=== PATIENT | female | born 1960 | race Hispanic/Latino ===

== ENCOUNTER 2016-06-23 00:20 | Observation (INO) | payer OTHER ==
[2016-06-23 00:53] VITALS: BMI 31.9
[2016-06-23] MEDS ORDERED: Sodium Chloride 0.9% 1,000 ML IV STA (01:06)
[2016-06-23] MEDS ORDERED: Morphine 2 mg/ml ISec IVP STA (01:06)
--- NOTE | 2016-06-23 01:07 | ED PDOC ---
Arrival/HPI - General Chief Complaint: Abdominal Pain Time Seen by Provider: 06/23/16 00:53 Historian: Patient - History of Present Illness Narrative History of Present Illness (Text): 06/23/16 01:07 Lillian Andrade is a 56 year old female who presents to the ED complaining of LLQ pain. Patient states yesterday morning she woke up with LLQ pain which resolved on its own, but notes pain returned this evening. Patient also reports associated left flank, urinary frequency, nausea, and vomiting. Patient denies any fever, chills, chest pain, shortness of breath, diarrhea, neck pain, headache, dizziness, or any other complaints. Time/Duration: Other (yesterday morning) Symptom Onset: Gradual Symptom Course: Unchanged Activities at Onset: Rest, Light Context: Home Past Medical History - Provider Review Nursing Documentation Reviewed: Yes - Infectious Disease Hx of Infectious Diseases: None - Tetanus Immunization Tetanus Immunization: Up to Date - Past Medical History Past Medical History: No Previous - Cardiac Hx Cardiac Disorders: No - Pulmonary Hx Respiratory Disorders: No - Neurological Hx Neurological Disorder: No - HEENT Other/Comment: CELLULITIS TO NOSE - Renal Hx Renal Disorder: No - Endocrine/Metabolic Hx Endocrine Disorders: No - Hematological/Oncological Hx AIDS: No - Integumentary Hx Cellulitis: Yes - Musculoskeletal/Rheumatological Hx Falls: No - Gastrointestinal Hx Gastrointestinal Disorders: No - Genitourinary/Gynecological Hx Cervical Cancer: No (LEEP for HPV) - Psychiatric Hx Depression: No Hx Substance Use: No - Surgical History Hx Orthopedic Surgery: Yes (left foot) Other/Comment: LEEP procedure - Anesthesia Hx Anesthesia: Yes Hx Anesthesia Reactions: No Hx Malignant Hyperthermia: No - Suicidal Assessment Feels Threatened In Home Enviroment: No Family/Social History - Physician Review Nursing Documentation Reviewed: Yes Family/Social History: No Known Family HX Smoking Status: Never Smoked Hx Alcohol Use: No Hx Substance Use: No Allergies/Home Meds Allergies/Adverse Reactions: Allergies No Known Allergies Allergy (Verified 06/23/16 00:53) Home Medications: Home Meds Medication Instructions Recorded Confirmed Bisoprolol [Zebeta] 5 mg PO DAILY 06/23/16 06/23/16 Losartan [Cozaar] 100 mg PO DAILY 06/23/16 06/23/16 Review of Systems - Physician Review All systems were reviewed & negative as marked: Yes - Review of Systems Constitutional: Normal. absent: Fevers Eyes: Normal ENT: Normal Respiratory: Normal. absent: SOB, Cough Cardiovascular: Normal. absent: Chest Pain Gastrointestinal: Abdominal Pain, Nausea, Vomiting. absent: Diarrhea, Appetite Changes Genitourinary Female: Frequency. absent: Dysuria, Hematuria, Urine Output Changes, Vaginal Bleeding Musculoskeletal: Back Pain. absent: Neck Pain Skin: Normal. absent: Rash Neurological: Normal. absent: Headache, Dizziness Endocrine: Normal Hemo/Lymphatic: Normal Psychiatric: Normal Physical Exam Vital Signs Reviewed: Yes Vital Signs Temp Pulse Resp BP Pulse Ox 06/23/16 04:08 72 16 130/70 98 06/23/16 03:20 69 16 126/71 100 06/23/16 01:01 97.6 F 53 L 20 134/85 100 Temperature: Afebrile Blood Pressure: Normal Pulse: Regular Respiratory Rate: Normal Appearance: Positive for: Well-Appearing, Non-Toxic, Comfortable Pain Distress: None Mental Status: Positive for: Alert and Oriented X 3 - Systems Exam Head: Present: Atraumatic, Normocephalic Pupils: Present: PERRL Extroacular Muscles: Present: EOMI Conjunctiva: Present: Normal Mouth: Present: Moist Mucous Membranes Neck: Present: Normal Range of Motion Respiratory/Chest: Present: Clear to Auscultation, Good Air Exchange. No: Respiratory Distress, Accessory Muscle Use Cardiovascular: Present: Regular Rate and Rhythm, Normal S1, S2. No: Murmurs Abdomen: Present: Tenderness (LLQ tenderness), Normal Bowel Sounds. No: Distention, Peritoneal Signs Upper Extremity: Present: Normal Inspection. No: Cyanosis, Edema Lower Extremity: Present: Normal Inspection. No: Edema Neurological: Present: GCS=15, CN II-XII Intact, Speech Normal Skin: Present: Warm, Dry, Normal Color. No: Rashes Psychiatric: Present: Alert, Oriented x 3, Normal Insight, Normal Concentration Medical Decision Making ED Course and Treatment: 06/23/16 01:07 Impression: 56 year old female complaining of LLQ pain, left flank pain, urinary frequency, nausea, and vomiting since yesterday. Differential Diagnosis include but are not limited to: kidney stone vs. renal colic vs. pyelonephritis vs. UTI Plan: -- CT Abdomen and Pelvis w/o contrast -- Labs, troponin -- Urinalysis -- IV fluids -- Zofran -- Morphine -- Reassess and disposition Prior Visits: Notes and results from previous visits were reviewed. Progress Notes: Reviewed EKG, sinus bradycardia at [address] bpm. LBBB. Non-specific ST/T wave changes. 06/23/16 02:23 Reviewed radiology, CT Abdomen and Pelvis shows: 3 mm left ureterovesical junction stone with moderate to severe left hydronephrosis, and correlation for infection recommended. 06/23/16 02:[address] Bonilla, who is aware and agrees with plan. Accepts pt in to hospitalist service. Pt will go to [facility] observation for renal colic. Pt is no acute distress. Discussed results and hospital observation plan with pt , who is aware and verbalizes understanding. 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 06/23/16 19:55 - Lab Interpretations Lab Results: 06/23/16 00:50 06/23/16 00:50 Lab Results 06/23/16 02:20: Urine Color Yellow, Urine Appearance Clear, Urine pH 6.0, Ur Specific Diana 1.025, Urine Protein Negative, Urine Glucose (UA) 100 H, Urine Ketones Negative, Urine Blood Moderate H, Urine Nitrate Negative, Urine Bilirubin Negative, Urine Urobilinogen 0.2, Ur Leukocyte Esterase Trace H, Urine RBC 5 - 10, Urine WBC 1 - 3, Ur Epithelial Cells 1 - 3, Urine Bacteria Few 06/23/16 00:50: WBC 8.5 D, RBC 4.60, Hgb 13.8, Hct 40.5, MCV 88.0, MCH 30.0, MCHC 34.1, RDW 13.3, Plt Count 284, MPV 10.0, Gran % 54.9, Lymph % (Auto) 36.7 H , [place] % (Auto) 6.0, Eos % (Auto) 2.0, Baso % (Auto) 0.4, Gran # 4.70, Lymph # 3.1, [place] # 0.5, Eos # 0.2, Baso # 0.03, Sodium 142, Potassium 3.5 L, Chloride 104, Carbon Dioxide 26, Anion Gap 16, BUN 18, Creatinine 0.7, Est GFR ( Amer) > 60, Est GFR (Non-Af Amer) > 60, Random Glucose 203 H, Calcium 9.4, Total Bilirubin 0.3, AST 27, ALT 23, Alkaline Phosphatase 63, Troponin I < 0.01 , Total Protein 7.3, Albumin 4.1, Globulin 3.2, Albumin/Globulin Ratio 1.3 I have reviewed the lab results: Yes - RAD Interpretation Narrative RAD Interpretations (Text): CT Abdomen and Pelvis shows: Lower thorax: Lung bases with mild dependent atelectatic change, no findings to suggest acute infection. Air in the esophagus in keeping with reflux. Small hiatus hernia. ABDOMEN: Liver: multiple hypoattenuating findings in the liver, these are not fully characterized on this noncontrast study, may represent multiple simple cysts. Gallbladder and bile ducts: Unremarkable. No calcified stones. No ductal dilation. Pancreas: Unremarkable. No ductal dilation. Spleen: Unremarkable. No splenomegaly. Adrenals: Unremarkable. No mass. Kidneys and ureters: There is moderate to severe left hydronephrosis. There is a 3 mm left ureterovesical junction stone. Clinical correlation for superimposed infection is recommended noting the extensive perinephric stranding. Stomach and bowel: No abdominal wall hernias containing bowel. No findings to suggest acute bowel pathology. No obstruction. No mucosal thickening. Appendix: The appendix is not identified with certainty, but there is no finding that would suggest acute appendicitis. PELVIS: Bladder: Unremarkable. No stones. Reproductive: Unremarkable as visualized. ABDOMEN and PELVIS: Intraperitoneal space: No free air. No significant fluid collection. Bones/joints: Degenerative spine changes. No acute fracture. No dislocation. Soft tissues: See above. Vasculature: Scattered atherosclerotic calcifications. No abdominal aortic aneurysm. Lymph nodes: Unremarkable. No enlarged lymph nodes. IMPRESSION: 3 mm left ureterovesical junction stone with moderate to severe left hydronephrosis, and correlation for infection recommended. Radiology Orders: 06/23/16 01:06 ABD & PELVIS W/O PO OR IV CONT [CT] Stat Reservoir Engineering Manager: Radiologist - EKG Interpretation Interpreted by ED Physician: Yes Type: 12 lead EKG - Medication Orders Current Medication Orders: Acetaminophen (Tylenol 325mg Tab) 650 mg PO Q4H PRN PRN Reason: Fever >100.4 F Last Admin: 06/23/16 18:41 Dose: 650 MG MAR Pain/Vitals Document 06/23/16 18:41 MJO (Rec: 06/23/16 18:42 MJO [id number]) Pain Reassessment Is This A Pain ReAssessment? No Sleep Is patient sleeping during reassessment? No Presence of Pain Presence of Pain Yes Pain Scale Used Pain Scale Used Numeric Location Pain Location Body [facility] Administrator Description Intermittent Intensity 7 Scale Used Numeric Pain Behavior Facial Grimacing Aggravating Factors None Aggravating Factors None Ceftriaxone Sodium (Rocephin 1 Gram Ivpb) 100 mls @ 100 mls/hr IVPB DAILY XENA PRN Reason: Protocol Losartan Potassium (Cozaar) 100 mg PO DAILY [facility] Last Admin: 06/23/16 10:26 Dose: 100 MG Morphine Sulfate (Morphine) 2 mg IVP Q4H PRN PRN Reason: Pain, moderate (4-7) Non-Formulary Medication (Bisoprolol [Zebeta]) 5 mg PO DAILY [facility] Ondansetron HCl (Zofran Inj) 4 mg IVP Q8H PRN PRN Reason: Nausea/Vomiting Pantoprazole Sodium (Protonix Ec Tab) 40 mg PO 0630 [facility] Discontinued Medications Hydromorphone HCl (Dilaudid) 2 mg IVP STAT STA Stop: 06/23/16 02:17 Last Admin: 06/23/16 02:42 Dose: Not Given Non-Admin Reason: Patient Refused IVP Administration Document 06/23/16 02:42 [email or web address] (Rec: 06/23/16 02:[id number]) Charges for Administration # of IVP Administrations 1 Sodium Chloride (Sodium Chloride 0.9%) 1,000 mls @ 100 mls/hr IV .Q10H STA Stop: 06/23/16 11:05 Last Admin: 06/23/16 01:22 Dose: 100 MLS/HR eMAR Start Stop Document 06/23/16 01:22 [email or web address] (Rec: 06/23/16 01:[id number]) Intravenous Solution Start Date 06/23/16 Start Time 01:22 Ceftriaxone Sodium (Rocephin 1 Gram Ivpb) 100 mls @ 200 mls/hr IVPB STAT STA PRN Reason: Protocol Stop: 06/23/16 03:32 Last Admin: 06/23/16 04:06 Dose: 200 MLS/HR eMAR Start Stop Document 06/23/16 04:06 LAC (Rec: 06/23/16 04:07 LAC [email or web address]) Intravenous Solution Start Date 06/23/16 Start Time 04:06 End Date 06/23/16 End time 05:00 Total Infusion Time 54 Morphine Sulfate (Morphine) 2 mg IVP STAT STA Stop: 06/23/16 01:07 Last Admin: 06/23/16 01:20 Dose: 2 MG MAR Pain Assessment Document 06/23/16 01:20 [facility] (Rec: 06/23/16 01:[id number]) Pain Reassessment Is this a pain reassessment? No Sleep Is patient sleeping during reassessment? No Presence of Pain Presence of Pain Yes Pain Scale Used Pain Scale Used Numeric Location Pain Location Body Site Abdomen Description Description Constant Intensity of Pain at present 9 Pain Behavior Facial Grimacing Aggravating Factors Changing Position Alleviating Factors/Management Medication Techniques Alleviating Factors Medication IVP Administration Document 06/23/16 01:20 [facility] (Rec: 06/23/16 01:[id number]) Charges for Administration # of IVP Administrations 1 Non-Formulary Medication (Bisoprolol [Zebeta]) 5 mg PO DAILY [facility] Last Admin: 06/23/16 10:00 Dose: 5 mg Ondansetron HCl (Zofran Inj) 4 mg IVP STAT STA Stop: 06/23/16 01:07 Last Admin: 06/23/16 01:22 Dose: 4 MG IVP Administration Document 06/23/16 01:22 [facility] (Rec: 06/23/16 01:[id number]) Charges for Administration # of IVP Administrations 1 - Scribe Statement The provider has reviewed the documentation as recorded by the Payton Garcia Provider Attestation: All medical record entries made by the Akiibnicolas were at my direction and personally dictated by me. I have reviewed the chart and agree that the record accurately reflects my personal performance of the history, physical exam, medical decision making, and the department course for this patient. I have also personally directed, reviewed, and agree with the discharge instructions and disposition. Disposition/Present on Arrival - Present on Arrival Any Indicators Present on Arrival: No History of DVT/PE: No History of Uncontrolled Diabetes: Yes Urinary Catheter: No History of Decub. Ulcer: No History Surgical Site Infection Following: None - Disposition Have Diagnosis and Disposition been Completed?: Yes Diagnosis: UTI (urinary tract infection), Left bundle branch block, Renal colic on left side Disposition: HOSPITALIZED Disposition Time: 03:25 Condition: FAIR
[2016-06-23 01:36] LABS: ADD MANUAL DIFF? NO
[2016-06-23 01:53] LABS: ALB/GLOB RATIO 1.3 (1.1-1.8); ALKALINE PHOSPHATASE 63 U/L (38-133); ALT/SGPT 23 U/L (7-56); AST/SGOT 27 U/L (15-39); BILIRUBIN,TOTAL 0.3 mg/dL (0.2-1.3); BLOOD UREA NITROGEN 18 mg/dL (7-21); CALCIUM 9.4 mg/dL (8.4-10.5); CARBON DIOXIDE 26 mmol/L (21-33); CHLORIDE 104 mmol/L (95-110); GFR AFRICAN-AMERICAN > 60; GLUCOSE,RANDOM 203 mg/dL (70-110); POTASSIUM 3.5 mmol/L (3.6-5.0); SODIUM 142 mmol/L (132-148); TOTAL PROTEIN 7.3 g/dL (5.8-8.3)
[2016-06-23 02:03] LABS: BASO # 0.03 K/mm3 (0.0-2.0); BASO % 0.4 % (0.0-3.0); EOS # 0.2 (0.0-0.7); GRAN % 54.9 % (50.0-68.0); HEMATOCRIT 40.5 % (36.0-48.0); LYMPH # 3.1 (1.2-3.4); LYMPH % 36.7 % (22.0-35.0); MEAN CORPUSCULAR HGB CONC 34.1 g/dl (31.0-37.0); MONO # 0.5 (0.1-0.6); PLATELET COUNT 284 10^3/uL (120.0-450.0); RED CELL DISTRIBUTION WIDTH 13.3 % (11.5-14.5); WHITE BLOOD COUNT 8.5 10^3/ul (4.5-11.0)
[2016-06-23] MEDS ORDERED: HYDROmorphone 2 mg/ml ISec IVP STA (02:16)
[2016-06-23 02:37] LABS: URINE APPEARANCE CLEAR (CLEAR); URINE BILIRUBIN NEGATIVE (NEGATIVE); URINE BLOOD MODERATE (NEGATIVE); URINE COLOR YELLOW (YELLOW); URINE GLUCOSE (UA) 100 mg/dL (NEGATIVE); URINE KETONE NEGATIVE (NEGATIVE); URINE LEUKOCYTE ESTERASE TRACE Leu/uL (NEGATIVE); URINE PROTEIN NEGATIVE mg/dL (<30 mg/dL); URINE UROBILINOGEN 0.2 E.U./dL (<1 E.U./dL)
[2016-06-23 02:45] LABS: URINE BACTERIA FEW (NEG)
[2016-06-23] MEDS ORDERED: cefTRIAXone 1 gm 100 ML IVPB STA (03:03)
[2016-06-23 03:17] LABS: TROPONIN I < 0.01 ng/mL
--- NOTE | 2016-06-23 03:33 | CP.PCM.PN ---
Subjective - Date & Time of Evaluation Date of Evaluation: 06/23/16 Time of Evaluation: 03:33 - Subjective Subjective: PGY-[address] Bonilla Admission: Renal colic, nephtolithiais, hydronephrosis 56 year old female who presents to the ED complaining of LLQ pain. Patient states yesterday morning she woke up with LLQ pain which resolved on its own, but notes pain returned this evening. Patient also reports associated left flank , urinary frequency, nausea, and vomiting. Upon ED arrival, T 97.6, HR 53, 134/85, 100 RA CBC unremarkable. K 3.5, Glucose 203, GFR normal. trops negative x 1. LFT normal. U/A shows 1-3 WBC, (+) leukocyte esterase, negative nitrate, + blood, + glucose Urine culture sent. - EKG shows sinus bradycardia at 56 bpm. LBBB. Non-specific ST/T wave changes. - CT Abdomen and Pelvis shows (+) 3 mm left ureterovesical junction stone with moderate to severe left hydronephrosis, and correlation for infection recommended. Air in the esophagus in keeping with reflux. Small hiatus hernia. Multiple liver cysts. Pt received zofran x1. NS @ 100. Rocephin x 1. 2 mg morphine & 2 mg dilaudid was given at the ED with adequate pain control While on the floor, dark brown 5mm hard stone was procured after straining urine at 4:30AM ROS: Patient denies any fever, chills, chest pain, shortness of breath, diarrhea , neck pain, headache, dizziness, or any other complaints. 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
--- NOTE | 2016-06-23 05:04 | CP.PCM.HP ---
History of Present Illness - History of Present Illness History of Present Illness: PGY-[address] Bonilla Admission: Renal colic, nephtolithiais, hydronephrosis 56 year old female, with PMH HOCM, LBBB, HTN, HPV s/p LEEP, presents to the ED complaining of LLQ pain x 1 day. Patient states yesterday morning she woke up with LLQ pain which resolved on its own, but notes pain returned this evening, after intentionally holding urine while outdoor for the whole afternoon and evening. This evening, she noticed dysuria, urinary frequency with small amount per void, 10/10 sharp suprapubic pain that radiate to left flank, nausea, and vomiting. Upon ED arrival, T 97.6, HR 53, 134/85, 100 RA CBC unremarkable. K 3.5, Glucose 203, GFR normal. trops negative x 1. LFT normal. U/A shows 1-3 WBC, (+) leukocyte esterase, negative nitrate, + blood, + glucose Urine culture sent. - EKG shows sinus bradycardia at 56 bpm. LBBB. Non-specific ST/T wave changes. - CT Abdomen and Pelvis shows (+) 3 mm left ureterovesical junction stone with moderate to severe left hydronephrosis, and correlation for infection recommended. Air in the esophagus in keeping with reflux. Small hiatus hernia. Multiple liver cysts. Pt received zofran x1. NS @ 100. Rocephin x 1. 2 mg morphine & 2 mg dilaudid was given at the ED with adequate pain control While on the floor, dark brown 5mm hard stone was procured after straining urine at 4:30AM. Speciment was sent for kidney stone analysis test. ROS: Denies recent change of diet Denies any fever, chills, chest pain, shortness of breath, diarrhea, neck pain, headache, dizziness (+) polyphagia, denies polydipsia or polyuria PMH: HOCM Hx LBBB Echocardiogram June 2015 - LVEF preserved HTN HPV s/p LEEP, 2014. No follow up after procedure PSH: LEEP for HPV L Foot surgery C Section x 1. 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 Gatica, [place] Present on Admission - Present on Admission Any Indicators Present on Admission: No Past Patient History - Infectious Disease Hx of Infectious Diseases: None - Tetanus Immunizations Tetanus Immunization: Up to Date - Past Medical History & Family History Past Medical History?: No - Past Social History Smoking Status: Never Smoked - CARDIAC Hx Cardiac Disorders: No - PULMONARY Hx Respiratory Disorders: No - NEUROLOGICAL Hx Neurological Disorder: No - HEENT Other/Comment: CELLULITIS TO NOSE - RENAL Hx Chronic Kidney Disease: No - ENDOCRINE/METABOLIC Hx Endocrine Disorders: No - HEMATOLOGICAL/ONCOLOGICAL Hx AIDS: No - INTEGUMENTARY Hx Cellulitis: Yes - MUSCULOSKELETAL/RHEUMATOLOGICAL Hx Falls: No - GASTROINTESTINAL Hx Gastrointestinal Disorders: No - GENITOURINARY/GYNECOLOGICAL Hx Cervical Cancer: No (LEEP for HPV) - PSYCHIATRIC Hx Depression: No Hx Substance Use: No - SURGICAL HISTORY Hx Orthopedic Surgery: Yes (left foot) Other/Comment: LEEP procedure - ANESTHESIA Hx Anesthesia: Yes Hx Anesthesia Reactions: No Hx Malignant Hyperthermia: No Meds Allergies/Adverse Reactions: Allergies Allergy/AdvReac Type Severity Reaction Status Date / Time No Known Allergies Allergy Verified 06/23/16 00:53 Physical Exam - Constitutional Appears: No Acute Distress - Head Exam Head Exam: ATRAUMATIC, NORMOCEPHALIC - Eye Exam Eye Exam: EOMI, Normal appearance, PERRL Pupil Exam: NORMAL ACCOMODATION - ENT Exam ENT Exam: Mucous Membranes Moist - Neck Exam Neck exam: Positive for: Normal Inspection. Negative for: Meningismus - Respiratory Exam Respiratory Exam: Clear to Auscultation Bilateral, NORMAL BREATHING PATTERN. absent: Rales, Rhonchi, Wheezes - Cardiovascular Exam Cardiovascular Exam: REGULAR RHYTHM, +S1, +S2. absent: Systolic Murmur - GI/Abdominal Exam GI & Abdominal Exam: Normal Bowel Sounds, Soft. absent: Distended, Firm, Rigid , Tenderness - Extremities Exam Extremities exam: Positive for: normal capillary refill, pedal pulses present. Negative for: calf tenderness, pedal edema - Back Exam Back exam: absent: CVA tenderness (L), CVA tenderness (R) - Neurological Exam Neurological exam: Alert, Oriented x3 - Psychiatric Exam Psychiatric exam: Normal Affect, Normal Mood - Skin Skin Exam: Dry, Warm Results - Vital Signs Recent Vital Signs: Last Vital Signs Temp 97.6 F 06/23/16 01:01 Pulse 72 06/23/16 04:08 Resp 16 06/23/16 04:08 BP 130/70 06/23/16 04:08 Pulse Ox 98 06/23/16 04:08 - Labs Result Diagrams: 06/23/16 00:50 06/23/16 00:50 Assessment & Plan - Assessment and Plan (Free Text) Plan: 56 year old female, with PMH HOCM, LBBB, HTN, HPV s/p LEEP, presents to the ED complaining of LLQ pain x 1 day. Pt has dysuria, urinary frequency with small amount per void, 10/10 sharp suprapubic pain that radiate to left flank, nausea , and vomiting. She was admitted for Renal colic, nephtolithiais, hydronephrosis. CT Abdomen and Pelvis shows (+) 3 mm left ureterovesical junction stone with moderate to severe left hydronephrosis, and correlation for infection recommended. Multiple liver cysts. Glucose > 200. Nephtolithiais Hydronephrosis Renal Colic - resolved for now - dark brown 5mm hard stone was procured after straining urine at 4:30AM. Specimen was sent for kidney stone analysis test. - CT shows 3 mm left ureterovesical junction stone with moderate to severe left hydronephrosis - NPO in case of ureteral stent - may need cardiac clearance for HOCM and LBBB - Antiematics, IVF, pain med, tylenol PRN Pyelonephrisit vs Cystitis vs UTI - U/A shows 1-3 WBC, (+) leukocyte esterase, negative nitrate, + blood, + glucose - Continue rocephin daily - Educate about adequate hydration and scheduled voided while outdoor Diabetes, suspected - Glucose 203 - Glucosuria - Pending A1C Hiatus hernia Multiple liver cysts. - Accidental findings on CT - LFT normal. No abdominal pain. Observe HTN - continue home med Losartan 100 daily & Zebeta 5 daily HOCM with LBBB Prophylasix - SCD, protonix S/R/D/w Dr. Armani Bonilla. - Date & Time Date: 06/23/16 Time: 05:10
[2016-06-23] MEDS ORDERED: Morphine 2 mg/ml ISec IVP PRN (05:18)
[2016-06-23] MEDS ORDERED: Pantoprazole 40 mg EC Tab PO SCH (06:30)
[2016-06-23 07:00] LABS: ADD MANUAL DIFF? NO
[2016-06-23 07:06] LABS: BASO # 0.01 K/mm3 (0.0-2.0); BASO % 0.1 % (0.0-3.0); EOS % 0.1 % (1.5-5.0); GRAN # 8.27 (1.4-6.5); GRAN % 83.2 % (50.0-68.0); HEMATOCRIT 38.4 % (36.0-48.0); LYMPH # 1.2 (1.2-3.4); LYMPH % 11.6 % (22.0-35.0); MEAN CELL VOLUME 88.1 fL (80.0-105.0); MEAN CORPUSCULAR HGB CONC 34.1 g/dl (31.0-37.0); MEAN PLATELET VOLUME 9.7 fl (7.0-11.0); MONO # 0.5 (0.1-0.6); PLATELET COUNT 279 10^3/uL (120.0-450.0); RED CELL DISTRIBUTION WIDTH 13.3 % (11.5-14.5); WHITE BLOOD COUNT 9.9 10^3/ul (4.5-11.0)
[2016-06-23 07:17] LABS: ALB/GLOB RATIO 1.1 (1.1-1.8); ALKALINE PHOSPHATASE 57 U/L (38-133); ALT/SGPT 21 U/L (7-56); AST/SGOT 21 U/L (15-39); BILIRUBIN,TOTAL 0.4 mg/dL (0.2-1.3); BLOOD UREA NITROGEN 15 mg/dL (7-21); CALCIUM 9.1 mg/dL (8.4-10.5); CARBON DIOXIDE 27 mmol/L (21-33); CHLORIDE 106 mmol/L (98-107); GFR AFRICAN-AMERICAN > 60; GLUCOSE,RANDOM 101 mg/dL (70-110); POTASSIUM 4.1 mmol/L (3.6-5.0); SODIUM 142 mmol/L (132-148); TOTAL PROTEIN 7.4 g/dL (5.8-8.3)
--- NOTE | 2016-06-23 08:42 | CARD ---
APPROVED REPORT EKG Measurement Heart [id number] <Conclusion> Sinus bradycardia Left bundle branch block Abnormal ECG
--- NOTE | 2016-06-23 09:56 | CT ---
PROCEDURE: CT Abdomen and Pelvis without intravenous contrast HISTORY: left flank pain COMPARISON: None. TECHNIQUE: Technique. This CT exam was performed using one or more of the following dose reduction techniques: Automated exposure control, adjustment of the mA and/or kV according to patient size, and/or use of iterative reconstruction technique. Helical scans were obtained from the diaphragm to the pubic symphysis without intravenous contrast. Helical coronal and sagittal reconstructions were obtained. Radiation dose: Total exam DLP = 586 mGy-cm. FINDINGS: LOWER THORAX: Unremarkable. LIVER: Multiple hepatic cysts the largest in the left hepatic lobe measuring 6.1 centimeters. GALLBLADDER AND BILE DUCTS: Unremarkable. PANCREAS: Unremarkable. No gross lesion or ductal dilatation. SPLEEN: Unremarkable. ADRENALS: Unremarkable. No mass. KIDNEYS AND URETERS: Left hydroureteronephrosis with a 2 millimeter calculus at the left UVJ. VASCULATURE: Unremarkable. No aortic aneurysm. BOWEL: Unremarkable. No obstruction. No gross mural thickening. APPENDIX: Unremarkable. Normal appendix. PERITONEUM: Unremarkable. No free fluid. No free air. LYMPH NODES: Unremarkable. No enlarged lymph nodes. BLADDER: Unremarkable. REPRODUCTIVE: Unremarkable. BONES: No acute fracture. OTHER FINDINGS: None. IMPRESSION: Left hydroureteronephrosis with a 2 millimeter calculus at the left UVJ.
[2016-06-23] MEDS ORDERED: BISOPROLOL 5 MG PO SCH (10:00)
--- NOTE | 2016-06-23 16:59 | CARD ---
APPROVED REPORT EKG Measurement Heart [id number] [place] 168P36 [id number] <Conclusion> Sinus bradycardia Left bundle branch block Abnormal ECG
[2016-06-24] MEDS ORDERED: cefTRIAXone 1 gm 100 ML IVPB SCH ×2 (03:00→06:00)
[2016-06-24 07:20] LABS: ADD MANUAL DIFF? NO
[2016-06-24 07:25] LABS: BASO # 0.03 K/mm3 (0.0-2.0); BASO % 0.5 % (0.0-3.0); EOS # 0.2 (0.0-0.7); EOS % 2.7 % (1.5-5.0); GRAN # 2.77 (1.4-6.5); GRAN % 45.9 % (50.0-68.0); HEMATOCRIT 38.5 % (36.0-48.0); LYMPH # 2.6 (1.2-3.4); LYMPH % 43.9 % (22.0-35.0); MEAN CELL VOLUME 89.3 fL (80.0-105.0); MEAN CORPUSCULAR HEMOGLOBIN 29.5 pg (25.0-35.0); MEAN PLATELET VOLUME 9.8 fl (7.0-11.0); MONO # 0.4 (0.1-0.6); PLATELET COUNT 263 10^3/uL (120.0-450.0); RED CELL DISTRIBUTION WIDTH 13.5 % (11.5-14.5)
[2016-06-24 08:04] LABS: ALKALINE PHOSPHATASE 54 U/L (38-133); ALT/SGPT 18 U/L (7-56); AST/SGOT 18 U/L (15-39); BILIRUBIN,TOTAL 0.5 mg/dL (0.2-1.3); BLOOD UREA NITROGEN 13 mg/dL (7-21); CALCIUM 8.6 mg/dL (8.4-10.5); CARBON DIOXIDE 27 mmol/L (21-33); CHLORIDE 107 mmol/L (98-107); GFR AFRICAN-AMERICAN > 60; GLUCOSE,RANDOM 96 mg/dL (70-110); POTASSIUM 4.2 mmol/L (3.6-5.0); SODIUM 143 mmol/L (132-148); TOTAL PROTEIN 6.6 g/dL (5.8-8.3)
[2016-06-24 09:40] VITALS: TEMP 98.4
--- NOTE | 2016-06-24 09:56 | RAD ---
HISTORY: pain COMPARISON: No prior. FINDINGS: BOWEL: There is moderate amount of stool in the colon. There is nonobstructive bowel gas pattern. BONES: Normal. OTHER FINDINGS: None. IMPRESSION: Constipation. Nonobstructive bowel gas pattern.
[2016-06-24] MEDS ORDERED: BISOPROLOL 5 MG PO SCH (10:00)
--- NOTE | 2016-06-24 13:39 | CP.PCM.DIS ---
<Justo Davis - Last Filed: 06/24/16 16:14> Provider - Provider Date of Admission: 06/23/16 02:59 Attending physician: Tatiana Lau MD Primary care physician: Domo Goodson MD Consults: Dr. Jennifer Goodwin Time Spent in preparation of Discharge (in minutes): 35 Hospital Course - Lab Results Lab Results: Most Recent Lab Values WBC 6.0 10^3/ul (4.5-11.0) D 06/24/16 07:00 RBC 4.31 10^6/uL (3.5-6.1) 06/24/16 07:00 Hgb 12.7 gm/dL (12.0-16.0) 06/24/16 07:00 Hct 38.5 % (36.0-48.0) 06/24/16 07:00 MCV 89.3 fL (80.0-105.0) 06/24/16 07:00 MCH 29.5 pg (25.0-35.0) 06/24/16 07:00 MCHC 33.0 g/dl (31.0-37.0) 06/24/16 07:00 RDW 13.5 % (11.5-14.5) 06/24/16 07:00 Plt Count 263 10^3/uL (120.0-450.0) 06/24/16 07:00 MPV 9.8 fl (7.0-11.0) 06/24/16 07:00 Gran % 45.9 % (50.0-68.0) L 06/24/16 07:00 Lymph % (Auto) 43.9 % (22.0-35.0) H 06/24/16 07:00 Emmet % (Auto) 7.0 % (1.0-6.0) H 06/24/16 07:00 Eos % (Auto) 2.7 % (1.5-5.0) 06/24/16 07:00 Baso % (Auto) 0.5 % (0.0-3.0) 06/24/16 07:00 Gran # 2.77 (1.4-6.5) 06/24/16 07:00 Lymph # 2.6 (1.2-3.4) 06/24/16 07:00 Emmet # 0.4 (0.1-0.6) 06/24/16 07:00 Eos # 0.2 (0.0-0.7) 06/24/16 07:00 Baso # 0.03 K/mm3 (0.0-2.0) 06/24/16 07:00 Sodium 143 mmol/L (132-148) 06/24/16 07:00 Potassium 4.2 mmol/L (3.6-5.0) 06/24/16 07:00 Chloride 107 mmol/L (98-107) 06/24/16 07:00 Carbon Dioxide 27 mmol/L (21-33) 06/24/16 07:00 Anion Gap 13 (10-20) 06/24/16 07:00 BUN 13 mg/dL (7-21) 06/24/16 07:00 Creatinine 0.6 mg/dL (0.5-1.4) 06/24/16 07:00 Est GFR ( Amer) > 60 06/24/16 07:00 Est GFR (Non-Af Amer) > 60 06/24/16 07:00 Random Glucose 96 mg/dL (70-110) 06/24/16 07:00 Hemoglobin A1c 5.1 % (4.2-6.5) 06/24/16 07:00 Calcium 8.6 mg/dL (8.4-10.5) 06/24/16 07:00 Total Bilirubin 0.5 mg/dL (0.2-1.3) 06/24/16 07:00 AST 18 U/L (15-39) 06/24/16 07:00 ALT 18 U/L (7-56) 06/24/16 07:00 Alkaline Phosphatase 54 U/L (38-133) 06/24/16 07:00 Troponin I < 0.01 ng/mL 06/23/16 00:50 Total Protein 6.6 g/dL (5.8-8.3) 06/24/16 07:00 Albumin 3.3 g/dL (3.0-4.8) 06/24/16 07:00 Globulin 3.2 gm/dL 06/24/16 07:00 Albumin/Globulin Ratio 1.0 (1.1-1.8) L 06/24/16 07:00 Urine Color Yellow (YELLOW) 06/23/16 02:20 Urine Appearance Clear (CLEAR) 06/23/16 02:20 Urine pH 6.0 (4.7-8.0) 06/23/16 02:20 Ur Specific [place] 1.025 (1.005-1.035) 06/23/16 02:20 Urine Protein Negative mg/dL (<30 mg/dL) 06/23/16 02:20 Urine Glucose (UA) 100 mg/dL (NEGATIVE) H 06/23/16 02:20 Urine Ketones Negative mg/dL (NEGATIVE) 06/23/16 02:20 Urine Blood Moderate (NEGATIVE) H 06/23/16 02:20 Urine Nitrate Negative (NEGATIVE) 06/23/16 02:20 Urine Bilirubin Negative (NEGATIVE) 06/23/16 02:20 Urine Urobilinogen 0.2 E.U./dL (<1 E.U./dL) 06/23/16 02:20 Ur Leukocyte Esterase Trace Faheem/uL (NEGATIVE) H 06/23/16 02:20 Urine RBC 5 - 10 /hpf (0-2) 06/23/16 02:20 Urine WBC 1 - 3 /hpf (0-6) 06/23/16 02:20 Ur Epithelial Cells 1 - 3 /hpf (0-5) 06/23/16 02:20 Urine Bacteria Few (NEG) 06/23/16 02:20 - Hospital Course Hospital Course: HPI: 56 year old female, with PMH HOCM, LBBB, HTN, HPV s/p LEEP, presents to the ED complaining of LLQ pain x 1 day. Patient states yesterday morning she woke up with LLQ pain which resolved on its own, but notes pain returned this evening, after intentionally holding urine while outdoor for the whole afternoon and evening. This evening, she noticed dysuria, urinary frequency with small amount per void, 10/10 sharp suprapubic pain that radiate to left flank, nausea, and vomiting. Patient is a 56 y/o F who presented to the ED with complaint of left lower quadrant pain for one day. She noticed dysuria and urinary frequency as well as suprapubic pain. A UA was performed which was positive for leukocyte esterase, glucose, and blood. An EKG was performed showing sinus bradycardia with LBBB and non-specific St/T wave changes. A CT of the abdomen and pelvis shows 3mm left reterovesical junction stone with moderate to severe left hydronephrosis, and correlation for infection recommended, air in the esophagus in keeping with reflux, small hiatus hernia, multiple liver cysts. She was given Rocephin, morphine, and dilauded as well as zofran. Urology was consulted. While admitted she passed a dark brown had stone and symptoms improved. She was determined medically stable for discharge. She was advised to follow up with Dr. Goodwin at his clinic, resume home medications, and follow up with her primary care physician and front office clerk within a week of discharge. She was told would need an outpatient abdominal ultrasound to monitor liver cysts. She was told that if her symptoms worsen or new symptoms arise, to please return to the emergency room. She verbalized understanding and was discharged home. This is a brief summary of the patient's stay at this facility. For more detail , please see patient's full chart. - Date & Time of H&P Date of H&P: 06/23/16 Time of H&P: 05:04 Discharge Exam - Head Exam Head Exam: ATRAUMATIC, NORMOCEPHALIC - Eye Exam Eye Exam: EOMI, Normal appearance, PERRL Pupil Exam: NORMAL ACCOMODATION, PERRL - ENT Exam ENT Exam: Mucous Membranes Moist, Normal Oropharynx - Respiratory Exam Respiratory Exam: NORMAL BREATHING PATTERN. absent: Rales, Rhonchi, Wheezes - Cardiovascular Exam Cardiovascular Exam: REGULAR RHYTHM, +S1, +S2. absent: Gallop, Rubs, Systolic Murmur - GI/Abdominal Exam GI & Abdominal Exam: Normal Bowel Sounds, Soft. absent: Tenderness - Extremities Exam Extremities exam: normal capillary refill, normal inspection, pedal pulses present - Back Exam Back exam: NORMAL INSPECTION. absent: CVA tenderness (L), CVA tenderness (R), tenderness - Neurological Exam Neurological exam: Alert, CN II-XII Intact, Oriented x3 - Psychiatric Exam Psychiatric exam: Normal Affect, Normal Mood - Skin Skin Exam: Dry, Intact, Normal Color, Warm Discharge Plan - Follow Up Plan Condition: FAIR Disposition: HOME/ ROUTINE Instructions: Pneumococcal Vaccine for Adults (GEN), Renal Colic (DC), Regular Diet (GEN), Urinary Tract Infection in Women (DC), Urinary Tract Infection in Men (DC), Dysuria (GEN) Additional Instructions: 1) You are medically stable for discharge. 2) Please follow up with Dr. Chao Goodwin, Urology, at his office in [place] at 1900 (7:00PM)this evening. 3) Please follow up with your primary care physician and front office clerk. You will need to get repeat ultrasound of the liver in 6 months. 4) Please resume home medications and take as prescribed. 5) If your symptoms worsen or new symptoms arise, please return to the emergency room. Referrals: Domo Goodson MD [Primary Care Provider] - Chao Goodwin MD [Staff Provider] - <Tatiana Lau - Last Filed: 06/24/16 17:50> Provider - Provider Date of Admission: 06/23/16 02:59 Attending physician: Tatiana Lau MD Primary care physician: Domo Goodson MD Time Spent in preparation of Discharge (in minutes): 35 Hospital Course - Lab Results Lab Results: Most Recent Lab Values WBC 6.0 10^3/ul (4.5-11.0) D 06/24/16 07:00 RBC 4.31 10^6/uL (3.5-6.1) 06/24/16 07:00 Hgb 12.7 gm/dL (12.0-16.0) 06/24/16 07:00 Hct 38.5 % (36.0-48.0) 06/24/16 07:00 MCV 89.3 fL (80.0-105.0) 06/24/16 07:00 MCH 29.5 pg (25.0-35.0) 06/24/16 07:00 MCHC 33.0 g/dl (31.0-37.0) 06/24/16 07:00 RDW 13.5 % (11.5-14.5) 06/24/16 07:00 Plt Count 263 10^3/uL (120.0-450.0) 06/24/16 07:00 MPV 9.8 fl (7.0-11.0) 06/24/16 07:00 Gran % 45.9 % (50.0-68.0) L 06/24/16 07:00 Lymph % (Auto) 43.9 % (22.0-35.0) H 06/24/16 07:00 Emmet % (Auto) 7.0 % (1.0-6.0) H 06/24/16 07:00 Eos % (Auto) 2.7 % (1.5-5.0) 06/24/16 07:00 Baso % (Auto) 0.5 % (0.0-3.0) 06/24/16 07:00 Gran # 2.77 (1.4-6.5) 06/24/16 07:00 Lymph # 2.6 (1.2-3.4) 06/24/16 07:00 Emmet # 0.4 (0.1-0.6) 06/24/16 07:00 Eos # 0.2 (0.0-0.7) 06/24/16 07:00 Baso # 0.03 K/mm3 (0.0-2.0) 06/24/16 07:00 Sodium 143 mmol/L (132-148) 06/24/16 07:00 Potassium 4.2 mmol/L (3.6-5.0) 06/24/16 07:00 Chloride 107 mmol/L (98-107) 06/24/16 07:00 Carbon Dioxide 27 mmol/L (21-33) 06/24/16 07:00 Anion Gap 13 (10-20) 06/24/16 07:00 BUN 13 mg/dL (7-21) 06/24/16 07:00 Creatinine 0.6 mg/dL (0.5-1.4) 06/24/16 07:00 Est GFR ( Amer) > 60 06/24/16 07:00 Est GFR (Non-Af Amer) > 60 06/24/16 07:00 Random Glucose 96 mg/dL (70-110) 06/24/16 07:00 Hemoglobin A1c 5.1 % (4.2-6.5) 06/24/16 07:00 Calcium 8.6 mg/dL (8.4-10.5) 06/24/16 07:00 Total Bilirubin 0.5 mg/dL (0.2-1.3) 06/24/16 07:00 AST 18 U/L (15-39) 06/24/16 07:00 ALT 18 U/L (7-56) 06/24/16 07:00 Alkaline Phosphatase 54 U/L (38-133) 06/24/16 07:00 Troponin I < 0.01 ng/mL 06/23/16 00:50 Total Protein 6.6 g/dL (5.8-8.3) 06/24/16 07:00 Albumin 3.3 g/dL (3.0-4.8) 06/24/16 07:00 Globulin 3.2 gm/dL 06/24/16 07:00 Albumin/Globulin Ratio 1.0 (1.1-1.8) L 06/24/16 07:00 Urine Color Yellow (YELLOW) 06/23/16 02:20 Urine Appearance Clear (CLEAR) 06/23/16 02:20 Urine pH 6.0 (4.7-8.0) 06/23/16 02:20 Ur Specific [place] 1.025 (1.005-1.035) 06/23/16 02:20 Urine Protein Negative mg/dL (<30 mg/dL) 06/23/16 02:20 Urine Glucose (UA) 100 mg/dL (NEGATIVE) H 06/23/16 02:20 Urine Ketones Negative mg/dL (NEGATIVE) 06/23/16 02:20 Urine Blood Moderate (NEGATIVE) H 06/23/16 02:20 Urine Nitrate Negative (NEGATIVE) 06/23/16 02:20 Urine Bilirubin Negative (NEGATIVE) 06/23/16 02:20 Urine Urobilinogen 0.2 E.U./dL (<1 E.U./dL) 06/23/16 02:20 Ur Leukocyte Esterase Trace Faheem/uL (NEGATIVE) H 06/23/16 02:20 Urine RBC 5 - 10 /hpf (0-2) 06/23/16 02:20 Urine WBC 1 - 3 /hpf (0-6) 06/23/16 02:20 Ur Epithelial Cells 1 - 3 /hpf (0-5) 06/23/16 02:20 Urine Bacteria Few (NEG) 06/23/16 02:20 - Hospital Course Hospital Course: Attending note; patient seen and examined with the resident. Patient is a 56 year old female with PMH HOCM, LBBB, HTN, HPV s/p LEEP, presents to the ED complaining of LLQ pain x 1 day. Patient states that she woke up with LLQ pain. CT abdomen and pelvis showed 2 mm stone with left hydronephrosis. The patient passed the stone yesterday morning. stone analysis pending. Currently patient is afebrile and nontoxic. No abdominal pain. No nausea, vomiting. Abdominal x-ray showed No stones. Case discussed with urology DR. Chao solorzano in detail. she will follow up with DR. Goodwin today evening. diagnosis; left ureteral stone HOCM HTN
[2016-06-24 15:51] VITALS: BP 135/71; PULSE 58; RESP 20; O2SAT 99
== END 2016-06-24 16:59 | disposition home or self-care (01) ==
LOC: ED 00:20 → ERH 02:59 → 5RNO 04:21
PROVIDERS: ADMIT Hospitalist; ATTEND Internal Medicine
DX: N13.2 Hydronephrosis with renal and ureteral calculous obstruction (principal); N39.0 Urinary tract infection, site not specified; I10 Essential (primary) hypertension; I42.1 Obstructive hypertrophic cardiomyopathy; I44.7 Left bundle-branch block, unspecified; K21.9 Gastro-esophageal reflux disease without esophagitis; K44.9 Diaphragmatic hernia without obstruction or gangrene; K76.89 Other specified diseases of liver; Z79.899 Other long term (current) drug therapy; Z82.49 Family history of ischemic heart disease and other diseases of the circulatory system; J34.0 Abscess, furuncle and carbuncle of nose; Z85.41 Personal history of malignant neoplasm of cervix uteri
CPT/HCPCS: 36415; 74022; 74176; 80053; 81001; 83036; 84484; 85025; 87086; 88300; 93005; 96365; 96366; 96375; 99285; G0378; J0696; J2270; J2405; J7040

== ENCOUNTER 2018-08-03 10:48 | Emergency (ER) | payer OTHER ==
[2018-08-03 11:04] VITALS: BMI 28.1
[2018-08-03 11:09] VITALS: BP 164/61; RESP 18; TEMP 98.5; O2SAT 100
[2018-08-03 11:11] VITALS: PULSE 82
[2018-08-03] MEDS ORDERED: Tmp-Smz 800 mg-160 mg DS Tab PO STA (11:20)
--- NOTE | 2018-08-03 11:35 | ED PDOC ---
Arrival/HPI - General Chief Complaint: Abnormal Skin Integrity Time Seen by Provider: 08/03/18 11:08 Historian: Patient - History of Present Illness Narrative History of Present Illness (Text): 08/03/18 11:28 58 year old female, with a past medical history of hypertension, and hyperlipidemia, who presents to the emergency department complaining of cellulitis on her nose. Patient reports she has had cellulitis of her nose four times in the past, with the last time four years ago. Patient reports she initially felt throbbing in the area on Friday after cleaning son's room. She reports taking Bactrim for the past 2 days. She denies having any facials done. She denies fever or any other somatic complaints. PMD: Dr. Goodson Time/Duration: < week Symptom Onset: Gradual Symptom Course: Unchanged Activities at Onset: Light Context: Home Past Medical History - Provider Review Nursing Documentation Reviewed: Yes - Infectious Disease Hx of Infectious Diseases: None - Tetanus Immunization Tetanus Immunization: Up to Date - Past Medical History Past Medical History: No Previous - Cardiac Hx Hypertension: Yes - Pulmonary Hx Respiratory Disorders: No - Neurological Hx Neurological Disorder: No - HEENT Other/Comment: CELLULITIS TO NOSE - Renal Hx Kidney Stones: Yes - Endocrine/Metabolic Hx Endocrine Disorders: No - Hematological/Oncological Hx Blood Transfusions: No Hx Blood Transfusion Reaction: No - Integumentary Hx Cellulitis: Yes - Musculoskeletal/Rheumatological Hx Falls: No - Gastrointestinal Hx Gastrointestinal Disorders: No - Genitourinary/Gynecological Hx Cervical Cancer: No (LEEP for HPV) - Psychiatric Hx Depression: No Hx Substance Use: No - Surgical History Hx Orthopedic Surgery: Yes (left foot) Other/Comment: LEEP procedure - Anesthesia Hx Anesthesia Reactions: No Hx Malignant Hyperthermia: No - Suicidal Assessment Feels Threatened In Home Enviroment: No Family/Social History - Physician Review Nursing Documentation Reviewed: Yes Family/Social History: Unknown Family HX Smoking Status: Never Smoked Hx Alcohol Use: No Hx Substance Use: No Allergies/Home Meds Allergies/Adverse Reactions: Allergies No Known Allergies Allergy (Verified 08/03/18 11:04) Home Medications: Home Meds Medication Instructions Recorded Confirmed Bisoprolol [Zebeta] 5 mg PO DAILY 06/23/16 06/23/16 Losartan [Cozaar] 100 mg PO DAILY 06/23/16 06/23/16 Review of Systems - Physician Review All systems were reviewed & negative as marked: Yes - Review of Systems Constitutional: absent: Fevers Cardiovascular: absent: Chest Pain Skin: Cellulitis Psychiatric: absent: Anxiety Physical Exam Vital Signs Reviewed: Yes Vital Signs Temp Pulse Resp BP Pulse Ox 08/03/18 10:48 98.5 F 82 18 164/61 H 100 Temperature: Afebrile Blood Pressure: Hypertensive Pulse: Regular Respiratory Rate: Normal Appearance: Positive for: Well-Appearing, Non-Toxic, Comfortable Pain Distress: None Mental Status: Positive for: Alert and Oriented X 3 - Systems Exam Head: Present: Atraumatic, Normocephalic Pupils: Present: PERRL Extroacular Muscles: Present: EOMI Conjunctiva: Present: Normal Mouth: Present: Moist Mucous Membranes Nose (External): Present: Atraumatic, Other (Nasal redness, warmth and tenderness. Tenderness is just at the tip. Redness extends to labial fold to both sides; right side has 4mm skin excoriation) Nose (Internal): Present: Normal Inspection, No Active Bleeding. No: Engorged, Boggy, Clear Mucous, Rhinorrhea, Purulent Mucous, Septal Deviation, Septal Hematoma, Epistaxis Neck: Present: Normal Range of Motion Respiratory/Chest: Present: Clear to Auscultation, Good Air Exchange. No: Respiratory Distress, Accessory Muscle Use Cardiovascular: Present: Regular Rate and Rhythm, Normal S1, S2. No: Murmurs Abdomen: No: Tenderness, Distention, Peritoneal Signs Back: Present: Normal Inspection Upper Extremity: Present: Normal Inspection. No: Cyanosis, Edema Lower Extremity: Present: Normal Inspection. No: Edema Neurological: Present: GCS=15, Speech Normal Skin: Present: Warm, Dry, Other (see nose exam). No: Rashes Psychiatric: Present: Alert, Oriented x 3, Normal Insight, Normal Concentration Medical Decision Making ED Course and Treatment: 08/03/18 11:26 Impression: 58 year old female presents to the ED complaining of cellulitis on her nose x 2 days. Differential Diagnosis included but are not limited to: Nasal skin cellulitis Plan: -- Keflex -- Bactrim -- Reassess and disposition Prior Visits: Notes and results from previous visits were reviewed. Progress Notes: Patient will be given Bactrim and Keflex and will need to make sure she takes both as prescribed. She was informed that she will need to return to the ED in 2 days for a wound check because she's had this infection in the past and we want to make sure it does not progress more. First does of meds given today here in the ED. Bactroban cream given as well. She will also make sure to follow up with primary care doctor in 1-2days and to return to the ED if symptoms worsen, fever, chills or any concern. - Medication Orders Current Medication Orders: Discontinued Medications Cephalexin Monohydrate (Keflex) 500 mg PO STAT STA; Protocol Stop: 08/03/18 11:21 Trimethoprim/Sulfamethoxazole (Bactrim Ds Tab) 1 tab PO STAT STA; Protocol Stop: 08/03/18 11:21 - Scribe Statement The provider has reviewed the documentation as recorded by the Payton Beyer All medical record entries made by the Akiibnicolas were at my direction and personally dictated by me. I have reviewed the chart and agree that the record accurately reflects my personal performance of the history, physical exam, medical decision making, and the department course for this patient. I have also personally directed, reviewed, and agree with the discharge instructions and disposition. Disposition/Present on Arrival - Present on Arrival Any Indicators Present on Arrival: Yes History of DVT/PE: No History of Uncontrolled Diabetes: Yes Urinary Catheter: No History of Decub. Ulcer: No History Surgical Site Infection Following: None - Disposition Have Diagnosis and Disposition been Completed?: Yes Diagnosis: Cellulitis of nose Disposition: HOME/ ROUTINE Disposition Time: 11:30 Patient Plan: Discharge Condition: GOOD Discharge Instructions (ExitCare): Cellulitis (ED) Additional Instructions: MIKA VILCHIS, thank you for letting us take care of you today. Your provider was Manuel Robles DO and you were treated for Nose Cellulitis The emergency medical care you received today was directed at your acute symptoms. If you were prescribed any medication, please fill it and take as directed. It may take several days for your symptoms to resolve. Return to the Emergency Department if your symptoms worsen, do not improve, or if you have any other problems. PLEASE MAKE SURE TO RETURN TO THE EMERGENCY DEPARTMENT IN 2 DAYS FOR A WOUND CHECK. Please contact your doctor or call one of the physicians/clinics you have been referred to that are listed on the Patient Visit Information form that is included in your discharge packet. Bring any paperwork you were given at discharge with you along with any medications you are taking to your follow up visit. Our treatment cannot replace ongoing medical care by a primary care provider outside of the emergency department. Thank you for allowing the [email or web address] team to be part of your care today. If you had an X-Ray or CT scan: A Radiologist will review the ED reading if any change in treatment is needed we will contact you. If you had a blood, urine, or wound culture: It will take several days for the results, if any change in treatment is needed we will contact you. If you had an STI test: It will take 48 hours for the results. Please call after 1 week if you have not heard back. Prescriptions: Cephalexin [Keflex] 500 mg PO Q6 #28 capsule Mupirocin 2% Cream [Bactroban Cream] 30 applic TOP BID #1 tube Sulfamethoxazole/Trimethoprim [Bactrim DS 800 mg-160 mg] 1 tab PO Q12 #20 tab Referrals: Domo Goodson MD [Primary Care Provider] - Follow up with primary Forms: [employer] (Kyrgyz), WORK NOTE
== END 2018-08-03 12:22 | disposition home or self-care (01) ==
LOC: ED 10:48
DX: J34.0 Abscess, furuncle and carbuncle of nose (principal)